=== PATIENT | male | born 1970 | race Caucasian/White ===

== ENCOUNTER 2017-03-02 08:26 | Emergency (ER) | payer BC ==
[~2017-03-02] VITALS: Ht 185.4 cm; Wt 130.5 kg
[~2017-03-02 08:26] MED LIST: Cipro PO; FLAGYL500 MG PO; FLEXERIL10 MG PO; Flagyl PO; HYDROCODON-ACE1 EAC7 PO; KEFLEX500 MG PO; LEVAQUIN750 MG PO; LISINOPRIL10 MG PO; LISINOPRIL5 MG PO; LORTAB 7.5/51 TABLET PO; LOSARTAN POTASS50 MG PO; MEDROL DOSEPAK4 MG PO; MOBIC15 MG PO; MOTRIN600 MG PO; NAPROSYN500 MG PO; OXYCODONE HCL5 MG PO; PERCOCET 5/31 TABLET PO; PRINIVIL10 MG PO; VALIUM2 MG PO; VALIUM5 MG PO; VENTOLIN HFA18 GM IH
[2017-03-02] MEDS ORDERED: LOSARTAN POTAS100 MG PO (08:29)
[2017-03-02] MEDS ORDERED: LIDODERM 5% P1 PATCH TD (09:34)
[2017-03-02] MEDS ORDERED: ULTRAM50 MG PO (09:34)
[2017-03-02] MEDS ORDERED: FLEXERIL10 MG PO (09:34)
[2017-03-02 09:54] VITALS: BP 138/84
== END 2017-03-02 09:55 | disposition home or self-care (01) ==
LOC: EME 08:26
DX: M54.42 Lumbago with sciatica, left side (principal); M54.16 Radiculopathy, lumbar region
CPT/HCPCS: 99281; 99284; J1885

== ENCOUNTER 2017-04-07 02:12 | Inpatient (IN) | payer BC ==
[~2017-04-07] VITALS: Ht 182.9 cm; Wt 133.9 kg
[~2017-04-07 02:12] MED LIST changes: +LIDODERM 5% P1 PATCH TD; +LOSARTAN POTAS100 MG PO; +ULTRAM50 MG PO
[2017-04-07 02:46] LABS: HEMATOCRIT 50.6 % (38.0-50.0); MCH 28.6 PG (29.0-34.0); MCV 92.2 FL (86-99); MEAN PLAT.VOLUME 9.5 uM^3 (9.0-12.4); PLATELET COUNT 199 K/uL (156-360); RBC DIS.WIDTH-CV 15.3 % (11.8-14.6); RBC DIS.WIDTH-SD 52.2 % (39-53); RED BLOOD COUNT 5.49 M/uL (4.00-5.50); WHITE BLOOD COUNT 9.1 K/uL (4.1-10.2)
[2017-04-07 02:59] LABS: CHLORIDE 100 mEq/L (99-109); POTASSIUM 3.7 mEq/L (3.7-5.4); SODIUM 139 mEq/L (136-147)
[2017-04-07 03:01] LABS: GLUCOSE 103 mg/dL (70-99)
[2017-04-07 03:02] LABS: ANION GAP 6 MEQ/L (2-14)
[2017-04-07 03:05] LABS: GFR ESTIMATE (CALCULATED) > 59 mL/min/
[2017-04-07 03:06] LABS: UREA NITROGEN (BUN) 11 mg/dL (9-23)
[2017-04-07 03:13] LABS: TROP-I INTERPRETATION NEGATIVE; TROPONIN-I 0.12 ng/mL (0.0-0.30)
[2017-04-07 13:21] LABS: TROP-I INTERPRETATION NEGATIVE; TROPONIN-I 0.06 ng/mL (0.0-0.30)
[2017-04-07 15:15] VITALS: BP 156/96
[2017-04-07 15:45] VITALS: BP 131/87
[2017-04-07 17:23] LABS: TROP-I INTERPRETATION NEGATIVE; TROPONIN-I 0.06 ng/mL (0.0-0.30)
[2017-04-07 18:13] VITALS: BP 146/77
[2017-04-07 18:15] VITALS: BP 146/77
[2017-04-07 19:38] VITALS: BP 143/70
[2017-04-08 00:39] VITALS: BP 155/82
[2017-04-08 00:40] VITALS: BP 155/82
[2017-04-08 04:16] VITALS: BP 124/71
[2017-04-08 05:47] LABS: HEMATOCRIT 48.3 % (38.0-50.0); MCHC 31.5 G/DL (30.0-36.0); MCV 92.2 FL (86-99); MEAN PLAT.VOLUME 10.4 uM^3 (9.0-12.4); PLATELET COUNT 187 K/uL (156-360); RBC DIS.WIDTH-CV 15.2 % (11.8-14.6); RBC DIS.WIDTH-SD 51.5 % (39-53); RED BLOOD COUNT 5.24 M/uL (4.00-5.50); WHITE BLOOD COUNT 7.9 K/uL (4.1-10.2)
[2017-04-08 06:11] LABS: ANION GAP 5 MEQ/L (2-14); CHLORIDE 98 MEQ/L (99-109); GFR ESTIMATE (CALCULATED) > 59 mL/min/; GLUCOSE 102 mg/dL (70-99); POTASSIUM 3.9 MEQ/L (3.7-5.4); SAMPLE HEMOLYSIS CHECK 0; SAMPLE ICTERIC CHECK 0; SAMPLE LIPEMIA CHECK 0; SODIUM 142 MEQ/L (136-147); UREA NITROGEN (BUN) 10 mg/dL (9-23)
[2017-04-08 08:30] VITALS: BP 156/95
[2017-04-08] MEDS ORDERED: AZITHROMYCIN500 M1 PO (12:09)
[2017-04-08] MEDS ORDERED: NICOTINE PATCH1 EACH TD (12:10)
[2017-04-08] MEDS ORDERED: LO-DOSE ASPIRIN81 M2 PO (12:10)
[2017-04-08] MEDS ORDERED: CARVEDILOL3.125 MG PO (12:10)
[2017-04-08] MEDS ORDERED: VENTOLIN HFA18 GM IH (12:11)
[2017-04-08] MEDS ORDERED: LASIX40 MG PO (12:11)
[2017-04-08] MEDS ORDERED: MEDROL DOSEPAK4 MG PO (12:11)
== END 2017-04-08 16:41 | disposition home health service (06) | DRG 190 ==
LOC: EME → EDBD 02:12 → EDOF 05:37 → 4EAST 05:37 → EDOF 15:21 → 4EAST 18:03
PROVIDERS: Emergency Medicine; Hospitalist; Physician Assistant
DX: J44.1 Chronic obstructive pulmonary disease with (acute) exacerbation (principal); J18.9 Pneumonia, unspecified organism; J44.0 Chronic obstructive pulmonary disease with (acute) lower respiratory infection; J96.01 Acute respiratory failure with hypoxia; I50.43 Acute on chronic combined systolic (congestive) and diastolic (congestive) heart failure; I11.0 Hypertensive heart disease with heart failure; I27.2 Other secondary pulmonary hypertension; F17.200 Nicotine dependence, unspecified, uncomplicated; E66.9 Obesity, unspecified; I45.10 Unspecified right bundle-branch block; Z68.41 Body mass index [BMI] 40.0-44.9, adult; Z82.49 Family history of ischemic heart disease and other diseases of the circulatory system
CPT/HCPCS: 71010; 80048; 83880; 84484; 85027; 93005; 93306; 94640; 94640 76; 94799; 99202; 99281; 99285; J0456; J0696; J1644; J1940; J2930; J7050; J7512; J7644

== ENCOUNTER 2017-12-07 21:00 | Emergency (ER) | payer BC ==
[~2017-12-07] VITALS: Ht 182.9 cm; Wt 118.0 kg
[~2017-12-07 21:00] MED LIST changes: +AZITHROMYCIN500 M1 PO; +CARVEDILOL3.125 MG PO; +LASIX40 MG PO; +LO-DOSE ASPIRIN81 M2 PO; +NICOTINE PATCH1 EACH TD
[2017-12-07 23:45] LABS: HEMATOCRIT 53.9 % (38.0-50.0); HEMOGLOBIN 16.5 G/DL (12.5-16.6); MCH 26.1 PG (29.0-34.0); MCHC 30.6 G/DL (30.0-36.0); MCV 85.4 FL (86-99); PLATELET COUNT 152 K/uL (156-360); RBC DIS.WIDTH-CV 20.8 % (11.8-14.6); RBC DIS.WIDTH-SD 61.1 % (39-53); RED BLOOD COUNT 6.31 M/uL (4.00-5.50); WHITE BLOOD COUNT 8.3 K/uL (4.1-10.2)
[2017-12-07 23:56] LABS: PTT 40.1 SEC (25-37)
[2017-12-08] MEDS ORDERED: ULTRACET1 TABLET PO (00:06)
[2017-12-08 00:41] VITALS: BP 129/86
[2017-12-08] MEDS ORDERED: PERCOCET 5/31 TABLET PO (14:34)
== END 2017-12-08 00:46 | disposition home or self-care (01) ==
LOC: EME 21:00
PROVIDERS: Physician Assistant
DX: S80.11XD Contusion of right lower leg, subsequent encounter (principal); W20.8XXD Other cause of strike by thrown, projected or falling object, subsequent encounter; Y99.0 Civilian activity done for income or pay; I11.0 Hypertensive heart disease with heart failure; I50.9 Heart failure, unspecified; J44.9 Chronic obstructive pulmonary disease, unspecified; F17.200 Nicotine dependence, unspecified, uncomplicated; Z88.5 Allergy status to narcotic agent; Z79.01 Long term (current) use of anticoagulants
CPT/HCPCS: 73590; 85027; 85610; 85730; 99281; 99284; J3010

== ENCOUNTER 2017-12-08 13:12 | Emergency (ER) | payer BC ==
[~2017-12-08] VITALS: Ht 182.9 cm; Wt 120.0 kg
[~2017-12-08 13:12] MED LIST changes: +ULTRACET1 TABLET PO
[2017-12-08] MEDS ORDERED: PERCOCET 5/31 TABLET PO (14:34)
[2017-12-08 15:41] VITALS: BP 118/60
== END 2017-12-08 15:42 | disposition home or self-care (01) ==
LOC: EME 13:12
DX: M79.604 Pain in right leg (principal); S80.11XD Contusion of right lower leg, subsequent encounter; W20.8XXD Other cause of strike by thrown, projected or falling object, subsequent encounter; Y99.0 Civilian activity done for income or pay; J44.9 Chronic obstructive pulmonary disease, unspecified; I10 Essential (primary) hypertension; F17.200 Nicotine dependence, unspecified, uncomplicated; Z88.5 Allergy status to narcotic agent

== ENCOUNTER 2018-02-08 08:51 | Day surgery (SDC) | payer BC ==
[~2018-02-08] VITALS: Ht 182.9 cm; Wt 110.0 kg
[~2018-02-08 08:51] MED LIST changes: +METOPROLOL SUCC50 MG PO; +XARELTO20 MG PO
[2018-02-08] MEDS ORDERED: LOSARTAN-HCTZ1 EAC2 PO (09:22)
== END 2018-02-08 11:24 | disposition home or self-care (01) ==
LOC: CATH 08:51
PROC: 5A2204Z Restoration of Cardiac Rhythm, Single (ICD-10-PCS; principal; 2018-02-08)
DX: I48.92 Unspecified atrial flutter (principal); I10 Essential (primary) hypertension; J44.9 Chronic obstructive pulmonary disease, unspecified; E66.9 Obesity, unspecified; Z79.01 Long term (current) use of anticoagulants
CPT/HCPCS: 93005; J2250